=== PATIENT | male | born 1995 | race American Indian/Alaskan Native ===

== ENCOUNTER 2022-08-23 10:33 | Emergency (ER) | payer SELFPAY | END 2022-08-23 13:09 | disposition left against medical advice (07) | LOC: ED 10:33 | DX: R39.198 Other difficulties with micturition (principal); Z53.21 Procedure and treatment not carried out due to patient leaving prior to being seen by health care provider ==

== ENCOUNTER 2022-08-24 10:12 | Emergency (ER) | payer SELFPAY ==
--- NOTE | 2022-08-24 11:14 | Emergency Department Report ---
ED Male HPI - General Chief complaint: Urogenital-Male Stated complaint: BURN WHEN URINES Time Seen by Provider: 08/24/22 10:59 Source: patient Mode of arrival: Ambulatory Limitations: No Limitations - History of Present Illness Initial comments: 27-year-old male presents to the emergency department complaining of possible contact with an STD due to protected sex recently. Possible having some penile discharge and burning at the tip off and on but denies any hematuria, pelvic pain, abdominal pain, flank pain, testicular pain or swelling. There is no rash present. MD Complaint: penile discharge, dysuria, other (Took some Bactrim at home for a few days but the symptoms continue continue to persist) - Related Data Previous Rx's Medication Instructions Recorded Last Taken Type Azithromycin [Zithromax TAB] 1,000 mg PO ONCE #2 tablet 08/24/22 Unknown Rx Cefixime [Suprax] 400 mg PO ONCE #1 capsule 08/24/22 Unknown Rx metroNIDAZOLE [Flagyl] 2,000 mg PO ONCE #4 tablet 08/24/22 Unknown Rx Allergies Allergy/AdvReac Type Severity Reaction Status Date / Time No Known Allergies Allergy Verified 07/12/20 08:48 ED Review of Systems ROS: Stated complaint: BURN WHEN URINES Other details as noted in HPI Comment: All other systems reviewed and negative ED Past Medical Hx - Past Medical History Previous Medical History?: No - Surgical History Past Surgical History?: No - Social History Smoking Status: Never Smoker Substance Use Type: None - Medications Home Medications: Home Medications Medication Instructions Recorded Confirmed Last Taken Type Azithromycin [Zithromax TAB] 1,000 mg PO ONCE #2 tablet 08/24/22 Unknown Rx Cefixime [Suprax] 400 mg PO ONCE #1 capsule 08/24/22 Unknown Rx metroNIDAZOLE [Flagyl] 2,000 mg PO ONCE #4 tablet 08/24/22 Unknown Rx ED Physical Exam - General Limitations: No Limitations General appearance: alert, in no apparent distress - Head Head exam: Present: atraumatic, normocephalic - Eye Eye exam: Present: normal appearance, PERRL - ENT ENT exam: Present: mucous membranes moist - Neck Neck exam: Present: normal inspection, full ROM - Respiratory Respiratory exam: Present: normal lung sounds bilaterally. Absent: respiratory distress - Cardiovascular Cardiovascular Exam: Present: regular rate, normal rhythm. Absent: systolic murmur, diastolic murmur, rubs, gallop - GI/Abdominal GI/Abdominal exam: Present: soft, normal bowel sounds - Rectal Rectal exam: Present: deferred - Extremities Exam Extremities exam: Present: normal inspection - Back Exam Back exam: Present: normal inspection - Neurological Exam Neurological exam: Present: alert, oriented X3 - Psychiatric Psychiatric exam: Present: normal affect, normal mood - Skin Skin exam: Present: warm, dry, intact, normal color. Absent: rash ED Course Vital Signs 08/24/22 10:23 Temperature 98.6 F Pulse Rate 76 Respiratory 20 Rate Blood Pressure 131/96 [Right] O2 Sat by Pulse 99 Oximetry ED Medical Decision Making - Medical Decision Making 27-year-old male Koko emerged part with complaining of possible STD exposure with penile symptoms but no significant findings on physical examination we will cover him for STD and have him follow-up with the local health department for definitive screening Critical care attestation.: If time is entered above; I have spent that time in minutes in the direct care of this critically ill patient, excluding procedure time. ED Disposition Clinical Impression: Possible exposure to STD, Dysuria Disposition: 01 HOME / SELF CARE / HOMELESS Is pt being admited?: No Does the pt Need Aspirin: No Condition: Stable Instructions: Dysuria Additional Instructions: HOME CARE INSTRUCTIONS - you were prescribed antibiotics, take them exactly as your caregiver instructs you. Finish the medication even if you feel better! Drink enough water and fluids to keep your urine clear or pale yellow. Avoid caffeine, tea, and carbonated beverages - these can irritate your bladder. Empty your bladder often. Avoid holding urine for long periods of time. Empty your bladder before and after sexual intercourse. After a bowel movement, women should cleanse from front to back. Use each tissue only once. SEEK MEDICAL CARE IF: You have back pain. You develop a fever. Your symptoms do not begin to resolve within 3 days. SEEK IMMEDIATE MEDICAL CARE IF: You have severe back pain or lower abdominal pain. You develop chills. You have nausea or vomiting. You have continued burning or discomfort with urination. Prescriptions: metroNIDAZOLE [Flagyl] 2,000 mg PO ONCE #4 tablet Cefixime [Suprax] 400 mg PO ONCE #1 capsule Azithromycin [Zithromax TAB] 1,000 mg PO ONCE #2 tablet Referrals: ERMIAS STRICKLAND MD [Primary Care Provider] - 3-5 Days [facility] [Outside] - 3-5 Days
[2022-08-24 12:05] VITALS: BP 132/88
== END 2022-08-24 11:55 | disposition home or self-care (01) ==
LOC: ED 10:12
DX: Z20.2 Contact with and (suspected) exposure to infections with a predominantly sexual mode of transmission (principal); R30.0 Dysuria; Z79.899 Other long term (current) drug therapy
CPT/HCPCS: 99282